=== PATIENT | male | born 1975 | race Two or more races ===

== ENCOUNTER 2016-08-18 09:29 | Emergency (ER) | payer OTHER ==
[2016-08-18 09:45] VITALS: BP 123/68
--- NOTE | 2016-08-18 10:07 | UC ---
Knee Pain HPI - HPI Summary HPI Summary: left knee pain x 2 days hx of left knee pain / meniscus injury has been seen by sports meds, was recommended to do activities as tolerated was running a 1/2 marathon and after the firs few miles has a sever sharp pain of his left knee, + swelling, locking of the knee - History of Current Complaint Chief Complaint: UCLowerExtremity Stated Complaint: KNEE INJURY Time Seen by Provider: 08/18/16 09:47 Hx Obtained From: Patient Onset/Duration: Sudden Onset, Lasting Days - 2, Still Present Severity Initially: Severe Severity Currently: Moderate Character: Sharp, Aching, Throbbing, Stiffness Aggravating Factor(s): Movement, Prolonged Standing, Stairs Alleviating Factor(s): Rest, Cold Associated Signs And Symptoms: Positive: Swelling, Weakness. Negative: Redness , Bruising, Numbness, Tingling Able to Bear Weight: Yes - Allergies/Home Medications Allergies/Adverse Reactions: Allergies Allergy/AdvReac Type Severity Reaction Status Date / Time No Known Allergies Allergy Verified 05/22/16 09:28 Home Medications: Home Medications Clomiphene Citrate 08/18/16 [History] Naproxen TAB* [Naprosyn 250 mg TAB*] 08/18/16 [History] Tadalafil [Cialis] 08/18/16 [History] PMH/Surg Hx/FS Hx/Imm Hx Previously Healthy: Yes - Surgical History Surgical History: Yes Surgery Procedure, Year, and Place: LEFT KNEE MENISCAL REPAIR 2004. SEPTUM STRAIGHTENED IN NOSE 1996 - Family History Known Family History: Negative: Diabetes - Social History Alcohol Use: Occasionally Substance Use Type: None Smoking Status (MU): Never Smoked Tobacco Review of Systems Constitutional: Negative Skin: Negative Eyes: Negative ENT: Negative Musculoskeletal: Other: - left knee pain All Other Systems Reviewed And Are Negative: Yes Physical Exam Triage Information Reviewed: Yes Appearance: Well-Appearing, No Pain Distress, Well-Nourished Vital Signs: Initial Vital Signs Temp 98.8 F 08/18/16 09:39 Pulse 58 08/18/16 09:39 Resp 16 08/18/16 09:39 BP 123/68 08/18/16 09:39 Pulse Ox 100 08/18/16 09:39 Vital Signs Reviewed: Yes Eye Exam: Normal Eyes: Positive: Conjunctiva Clear ENT: Positive: Normal ENT inspection, Hearing grossly normal, Pharynx normal Neck exam: Normal Neck: Positive: Supple, Nontender, No Lymphadenopathy Respiratory: Positive: Chest non-tender, Lungs clear, Normal breath sounds Cardiovascular: Positive: RRR, No Murmur, Pulses Normal Musculoskeletal: Positive: Other: - left knee: + swelling, effusion , diffuse tenderness, limited ROM on flexion , ligaments stabel + Poncho Knee Pain Course/Dx - Differential Dx/Diagnosis Provider Diagnoses: left knee pain. left knee effusion Discharge - Discharge Plan Condition: Stable Disposition: HOME Prescriptions: Hydrocodone-Acetaminophen [Hydrocodone/Acetaminophen 5-325 mg] 1 tab PO Q6HR PRN #30 tab MDD 4 PRN Reason: Pain Patient Education Materials: Meniscus Tear (ED) Referrals: Dav Walton MD [Primary Care Provider] - 7 Days Additional Instructions: knee pain , ? meniscus injury cont. with rest, ice , elevation hydrocodon as needed for sever pain follow up with your ortho jim
== END 2016-08-18 10:03 | disposition home or self-care (01) ==
LOC: UCEAST 09:29
DX: M25.562 Pain in left knee (principal); M25.462 Effusion, left knee
CPT/HCPCS: 99212; G0463

== ENCOUNTER 2016-09-05 05:44 | Day surgery (SDC) | payer OTHER ==
--- NOTE | 2016-08-27 06:25 | HP ---
HISTORY AND PHYSICAL: DATE OF ADMISSION/SURGERY: 09/05/16 SURGEON: Ariana Alex MD (DICTATED BY GEORGES RUBIO) PROCEDURES: Left knee arthroscopy, partial medial meniscectomy, partial lateral meniscectomy, possible chondroplasty, possible synovectomy. CHIEF COMPLAINT: Left knee pain. HISTORY OF PRESENT ILLNESS: Mr. Nevarez is a 41-year-old gentleman with complaints of left knee pain. MRI shows a meniscus tear and he has elected to proceed with left knee arthroscopy, partial medial meniscectomy and lateral meniscectomy, possible chondroplasty, and possible synovectomy. PAST MEDICAL HISTORY: 1. Low testosterone. 2. Proctitis. 3. Facial tic. PAST SURGICAL HISTORY: Bilateral knee arthroscopies. CURRENT MEDICATIONS: 1. Clomiphene. 2. Cialis. 3. Haloperidol. 4. Canasa suppository every other day. 5. Multivitamin. 6. Vitamin D. ALLERGIES: None. FAMILY HISTORY: Cancer, osteoporosis, osteoarthritis. SOCIAL HISTORY: This is a 41-year-old gentleman. 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 He does not smoke or use drugs. Uses alcohol occasionally. REVIEW OF SYSTEMS: A complete 14-point review of systems was reviewed with the patient, was all negative. PHYSICAL EXAMINATION GENERAL: He is well developed, well nourished. He is in no acute distress. VITAL SIGNS: Stands 6 feet 3 inches tall, weighs 215 pounds, blood pressure 125 /72, heart rate 55. HEENT: Normocephalic, atraumatic. NECK: Supple. No palpable lymph nodes. PULMONARY: The lungs are clear to auscultation bilaterally. CARDIO: Regular rate and rhythm. Strong S1, S2. ABDOMEN: Soft, nontender, nondistended. NEUROLOGICAL: He is alert and oriented x3. Cranial nerves II through XII are intact. MUSCULOSKELETAL: Left lower extremity: The skin is intact. There are no open wounds or abrasions. There is mild joint effusion. Some tenderness over the medial and lateral joint line. Positive Apley's. Negative Pina's. His lower extremity muscle group strengths are intact, 5/5. He has 2+ dorsalis pedis pulses and intact sensation. ASSESSMENT AND PLAN: Mr. Nevarez is a 41-year-old gentleman with complaints of a left knee pain. An MRI showed meniscus tear. He has elected to proceed with left knee arthroscopy with partial medial meniscectomy, partial lateral meniscectomy, possible chondroplasty, and possible synovectomy. The surgery is scheduled for 09/05/[address] Alex discussed the risks and benefits of the surgery at today's visit and all of his questions were answered. He will see Dr. Alex back 2 weeks following the surgery. GEORGES RUBIO [id number]/[facility] #: [id number] MTDD
[~2016-09-05 05:44] MED LIST: Buffered Lidocaine 0.9% SYRIN* 5 ML/SYR SYRINGE INTRADERM ONE; Morphine INJ* 2 MG/ML 1 ML SYRINGE IV PRN; PROCHLORPERAZINE INJ 5 MG/ML 2 ML VIAL IV PRN
[2016-09-05] MEDS ORDERED: Buffered Lidocaine 0.9% SYRIN* 5 ML/SYR SYRINGE ONE (05:51)
[2016-09-05] MEDS ORDERED: ceFAZolin 2 GM PREMIX(*) 2 GM/50 ML BAG IVPB ONE (05:51)
[2016-09-05] MEDS ORDERED: Famotidine IV* 10 MG/ML 2 ML (20 mg) ONE (05:51)
[2016-09-05] MEDS ORDERED: Famotidine IV* 10 MG/ML 2 ML (20 mg) IV ONE (06:00)
[2016-09-05] MEDS ORDERED: Bupivacaine 0.5% SDV PF* 30 ML VIAL ONE (06:48)
[2016-09-05] MEDS ORDERED: EPINEPHrine AMP 1 MG/ML ONE ×2 (06:48→08:12)
[2016-09-05] MEDS ORDERED: methylPREDNISolone ACETATE 80* 80 MG/ML 1 ML VIAL ONE (06:48)
[2016-09-05] MEDS ORDERED: fentaNYL* 50 MCG/ML 2 ML VIAL (100 MCG VIAL) ONE ×3 (07:09→08:55)
[2016-09-05] MEDS ORDERED: KETAMINE HCL* 50 MG/ML 10 ML VIAL ONE (07:09)
[2016-09-05] MEDS ORDERED: Midazolam* 1 MG/ML 5 ML VIAL (5 MG) ONE (07:09)
[2016-09-05] MEDS ORDERED: Ondansetron INJ* 2 MG/ML VIAL ONE (07:53)
[2016-09-05] MEDS ORDERED: Dexamethasone IV* 4 MG/ML 1 ML (4 MG) ONE (07:53)
[2016-09-05] MEDS ORDERED: Glycopyrrolate IV* 0.2 MG/ML 1 ML VIAL ONE ×2 (07:53)
[2016-09-05] MEDS ORDERED: Propofol* 10 MG/ML 20 ML BTL IV PUSH ONE (07:53)
[2016-09-05] MEDS ORDERED: Ketorolac INJ* 30 MG/ML 1 ML VIAL ONE (07:53)
[2016-09-05] MEDS: fentaNYL* 50 MCG/ML 2 ML VIAL (100 MCG VIAL) IV PRN ×4 (08:56→09:56)
[2016-09-05] MEDS ORDERED: oxyCODONE/Acetamin 5/325 MG* TAB ONE ×2 (09:13→09:57)
[2016-09-05] MEDS: oxyCODONE/Acetamin 5/325 MG* TAB PO PRN ×2 (09:14→09:58)
[2016-09-05] MEDS ORDERED: PROCHLORPERAZINE INJ 5 MG/ML 2 ML VIAL ONE (11:48)
[2016-09-05] MEDS ORDERED: Scopolamine 1.5 mg* PATCH ONE (11:56)
[2016-09-05 13:49] VITALS: BP 115/68
--- NOTE | 2016-09-06 02:59 | OP ---
DATE OF OPERATION: 09/05/16 [facility] DATE OF : 75 SURGEON: Ariana Alex MD SYSTEMS INTEGRATION ANALYST: GEORGES Sam. Ms. Koroma did help throughout the procedure with preparation of the leg, holding the instruments, manipulation of the knee, and wound closure. ANESTHESIOLOGIST: Dr. Prabhjot Mitchell. ANESTHESIA: General. PRE-OP DIAGNOSES: Left knee medial and lateral meniscal tears, osteoarthritis. POST-OP DIAGNOSES: Left knee medial and lateral meniscal tears, osteoarthritis. OPERATIVE PROCEDURE: Left knee arthroscopy with partial medial meniscectomy and partial lateral meniscectomy. COMPLICATIONS: None. SPECIMENS: None. ESTIMATED BLOOD LOSS: Less than 25 cc. BRIEF HISTORY/INDICATIONS: Mr. Nevarez is a 41-year-old gentleman with intermittent [id number] left knee pain over the years. Several weeks ago , he developed severe left knee pain and this has not been relieved by anti- inflammatories, rest, activity modification, or ice. MRI of the left knee showed lateral meniscal tear and likely medial meniscal tear. The patient also had some osteoarthritis on plane films. The patient and I discussed surgical options. He elected to undergo left knee arthroscopy with partial meniscectomy , possible chondroplasty, possible synovectomy due to his severe pain. Informed consent was obtained from the patient. He understood the risks of the surgery included but were not limited to bleeding, infection, damage to nearby structures, continued pain, need for further surgery, stroke, heart attack, blood clot, and . He wished to proceed. INTRAOPERATIVE FINDINGS: Intraoperatively, the patient was found to have severe end-stage arthritis, grade 3 and 4 Outerbridge cartilage changes in the patellofemoral compartment with expose of chondral bone along the vast majority of the femoral trochlear groove. He had some grade 3 and 4 Outerbridge cartilage changes along the medial femoral condyle with expose of chondral bone in a much smaller surface area. He had a displaced parrot beak type tear of the posterior medial meniscal body, which was with a flipped fragment underneath into the capsular recess. He also had a linear tear of the body of the lateral meniscus. DESCRIPTION OF PROCEDURE: Mr. Nevarez was identified in the preanesthesia unit. His left lower extremity was marked as the correct operative side. Informed consent was signed and placed in the chart. The patient was taken to the operating room and placed under general anesthesia. Left lower extremity was prepped and dapped in the usual sterile fashion. Preop time-out was made to correctly identify the patient's side and site. Appropriate perioperative antibiotics were given within 1 hour of incision. A standard anterolateral portal incision was made with a 15 blade and carried down through capsule. A trocar was introduced. As soon as the light and water sources were turned on, there was immediate visualization of the suprapatellar pouch. A tour of the knee joint was performed. Suprapatellar pouch had no obvious abnormality. The patellofemoral compartment showed advanced arthritis with expose of chondral bone along the vast majority of the femoral trochlear groove. There is cartilage flapping here as well. Patellar facets had scattered grade 3 and 4 Outerbridge cartilage changes. Medial gutter showed no significant plica or loose body. Medial compartment showed some grade 3 and 4 Outerbridge cartilage changes with areas of cartilage degeneration. The posterior aspect of the medial meniscus did show an obvious meniscal tear. ACL appeared to be intact. The patient's leg was placed in a ilmtoa-[id number]-ulak position. Lateral meniscal tear, which was horizontal in the white-red zone was visualized. No significant degenerative changes were noted. Under direct visualization, a medial portal incision was made with a 15 blade. A probe was introduced and a second tour of the knee joint was performed. The patient's medial meniscal tear was a large parrot beak type fragment, which had displaced and flipped into the posterior medial capsular recess. This was carefully reduced back into the joint space. Straight biter and shaver were used to perform partial medial meniscectomy until a smooth border was obtained. Further probing of the meniscus showed no further tears. This was performed in the white- red zone. Probing of the medial femoral condyle cartilage damage was performed, but there were no significant flaps for chondroplasty. Next, the patient's knee was placed in a hyiyfv-[id number]-vrva position. There was a horizontal linear tear in the lateral meniscus along the white-red zone. This was carefully excised with right biter, back biter, and shaver. Radiofrequency ablation wand was used to carefully smooth the edge of the torn meniscus in the white-red zone. At this point, the knee was copiously irrigated with sterile saline. All instruments were carefully removed. The incisions were closed using interrupted 3- 0 nylon suture. Intraarticular injection of 80 mg of Depo- Medrol and 6 cc of 0.25% Marcaine was placed in the knee joint. The patient's incisions were covered with Xeroform, 4x4's, and Webril. Vasyl wrap and cold pack were placed over this. The patient's anesthesia was reversed without difficulty. He was taken to the PACU in stable condition. Intended weight-bearing will be weightbearing as tolerated. Intended DVT prophylaxis will be aspirin. He will follow up in 2 weeks' time for suture removal. [id number]/[facility] #: [id number] MTDD
== END 2016-09-06 13:30 | disposition home or self-care (01) ==
LOC: OR 05:44
PROVIDERS: ATTEND Orthopaedic Surgery Adult Reconstructive Orthopaedic Surgery
DX: M23.204 Derangement of unspecified medial meniscus due to old tear or injury, left knee (principal); M23.201 Derangement of unspecified lateral meniscus due to old tear or injury, left knee; M17.12 Unilateral primary osteoarthritis, left knee
CPT/HCPCS: A9270-GY; J0171; J0690; J0780; J1040; J1100; J1885; J2250; J2405; J2704; J3010